=== PATIENT | female | born 1960 | race Caucasian/White ===

== ENCOUNTER → 2017-02-03 | Outpatient (CLI) | payer BC ==
--- NOTE | ~2017-02-03 | CR123 ---
[facility] A Service of [facility] RADIOLOGY TEXT RESULTS PATIENT: RACHEL DEAN LOCATION: [facility] : 60 UNIT #: [id number] AGE: [address]: RACHEL NOVOA MD SEX: F ORDER DR: [id number] [facility]. [place], [place] [address] [id number] O MR#: [id number] Acc #: [id number] NAME: RACHEL DEAN : 1960 SEX: F STUDY DATE/TIME: 02/03/2017 15:08 UNIT: [facility] ROOM: STUDY DESCRIPTION: CR Foot 2 Views Lt Attending Physician: Rachel Novoa M.D. Referring Physician: Rachel Novoa M.D. Ordering Physician: Rachel Novoa M.D. Primary Care Physician: Rachel Novoa M.D. MEDICAL IMAGING REPORT This report is preliminary unless electronic signature is present EXAM Three views left foot. INDICATIONS Pain in the lateral portion of the left foot present for 2 weeks after patient stepped on a garden rake. FINDINGS No acute fracture or subluxation of the left foot is identified. However, patient does have focal soft tissue swelling over the metatarsal head of the little toe. No underlying osseous abnormality is seen and no radiopaque retained foreign body is identified. IMPRESSION No acute fracture or subluxation identified although the patient does have focal soft tissue swelling seen overlying the lateral aspect of the metatarsal head of the little toe. Dictated by... Nataliia Boo M.D. THIS IS AN ELECTRONICALLY VERIFIED REPORT Nataliia Boo M.D. at 02/04/2017 2:43 PM AFF/psc TD: 02/04/2017 11:33 JOB #: [id number] MEDICAL IMAGING REPORT Page 1 of 1 COPY
== END | disposition home or self-care (01) ==
LOC: CRAD 14:38
DX: S91.339A Puncture wound without foreign body, unspecified foot, initial encounter (principal)
CPT/HCPCS: 73620